=== PATIENT | male | born 1960 | race Asian ===

== ENCOUNTER 2022-01-06 07:11 | Day surgery (SDC) | payer OTHER ==
[2022-01-05 15:06] LABS: COVID AG,FIA SOURCE NASAL SWAB
[~2022-01-06] VITALS: Ht 157.5 cm; Wt 54.5 kg
[~2022-01-06 07:11] MED LIST: SODIUM CHLORIDE 0.9% 0 ML ONE; SODIUM CHLORIDE 0.9% 1,000 ML IV ONE
[2022-01-06] MEDS ORDERED: SODIUM CHLORIDE 0.9% 1,000 ML ONE (07:15)
[2022-01-06] MEDS ORDERED: FentaNYL CITRATE PF 100 MCG/2 ML VIAL ONE (07:32)
[2022-01-06] MEDS ORDERED: MIDAZOLAM HCL 5 MG/ML VIAL ONE (07:33)
[2022-01-06] MEDS ORDERED: MethylPREDNISolone SOD SUCC 125 MG/2 ML VIAL ONE (09:25)
[2022-01-06] MEDS ORDERED: MethylPREDNISolone SOD SUCC 125 MG/2 ML VIAL IVP ONE (09:30)
[2022-01-06] MEDS ORDERED: OXYGEN THERAPY IH SCH (20:00)
== END 2022-01-06 11:20 | disposition home or self-care (01) ==
LOC: SURGERY 07:11
PROVIDERS: ATTEND Internal Medicine Critical Care Medicine
DX: R05.3 Chronic cough (principal); R91.1 Solitary pulmonary nodule; B37.0 Candidal stomatitis; R49.0 Dysphonia; R04.2 Hemoptysis; J45.909 Unspecified asthma, uncomplicated; E11.9 Type 2 diabetes mellitus without complications; Z20.822 Contact with and (suspected) exposure to COVID-19; Z79.899 Other long term (current) drug therapy; Z98.890 Other specified postprocedural states
CPT/HCPCS: 87426; 31623; 87206; 87101; 87220; 87070; 88108; 88305; 93005; 31624; 71045; 87015; C9803; J3010; J2930; J2250; J7030